=== PATIENT | male | born 1960 | race African-American/Black ===

== ENCOUNTER 2018-06-15 09:27 | Outpatient (CLI) | payer OTHER ==
--- NOTE | 2018-06-15 16:31 | ULT ---
BILATERAL RENAL ULTRASOUND: 06/15/2018 HISTORY/TECHNIQUE: Ultrasonography of the urinary tract was performed in this patient with chronic kidney disease and hy pertension. FINDINGS: The right kidney is somewhat large, measuring 15.7 x 7.4 x 8.1 cm. It is polycystic in nature with a very large number of cysts spread throughout. The largest is about 4.4 cm in diameter. There is no hydronephrosis present. No real thinning of the cortex is seen. The left kidney is 10.6 x 6.1 x 4.8 cm. It has a single, small, 1.8 cm simple cyst in it. No mass or hydronephrosis is seen. The urin corine bladder contained no filling defects internally. The wall was somewhat thick, at 6 mm in width. While not fully distended, it seemed distended enough that this thickening is most likely real. IMPRESSION: 1. No evidence of urinary tract obstruction. 2. Markedly polycystic right kidney. 3. Concentric thickening of the urinary bladder wall. This could be seen in cases of chronic outlet obstruction or cystitis. POS: HOME
== END 2018-06-15 09:28 | disposition home or self-care (01) ==
LOC: BURULT 09:27
PROVIDERS: ATTEND Internal Medicine Nephrology
DX: I12.9 Hypertensive chronic kidney disease with stage 1 through stage 4 chronic kidney disease, or unspecified chronic kidney disease (principal); N18.3 Chronic kidney disease, stage 3 (moderate); N32.9 Bladder disorder, unspecified; Q61.3 Polycystic kidney, unspecified
CPT/HCPCS: 76770